=== PATIENT | female | born 1950 | race Caucasian/White ===

== ENCOUNTER 2018-12-20 23:18 | Emergency (ER) | payer OTHER ==
[~2018-12-20] VITALS: Ht 162.6 cm; Wt 72.6 kg
--- NOTE | 2018-12-20 23:40 | NUR ---
Patient bib ems from [facility] at [facility] for unwitnessed fall + AMS. A/Ox1 responds to name. Laceration noted on left forehead, no active bleeding. Multiple bruises noted on LLE. Respiratory even and unlabored, no cough no sob. No acute cardiovascular distress noted. No GI/ distress. Patient in bed at lowest position, sr upx2, call light within reach. Fall precautions implemented per protocol. Patient is unable to sit still and constantly gets out of bed. Patient at high risk for falls. Nursing vine fruit farming supervisor notified, and is trying to figure out sitter situation.
[2018-12-20] MEDS ORDERED: IV NS 1000 ML 1,000 ML IV ONE (23:45)
[2018-12-20] MEDS ORDERED: SERT50TA PO (23:49)
[2018-12-20] MEDS ORDERED: DIVA125T2 PO (23:49)
[2018-12-20] MEDS ORDERED: CHOL10002 PO (23:49)
[2018-12-20] MEDS ORDERED: RISP2TAB23 PO (23:49)
[2018-12-20] MEDS ORDERED: AMLO5TAB9 PO (23:49)
[2018-12-20] MEDS ORDERED: QUET25TA PO (23:49)
[2018-12-20] MEDS ORDERED: ASPI-605 PO (23:49)
[2018-12-20] MEDS ORDERED: ESZO3TAB27 PO (23:49)
[2018-12-20] MEDS ORDERED: AMLO10TA7 PO (23:49)
[2018-12-20] MEDS ORDERED: CYAN250010 PO (23:49)
[2018-12-20] MEDS ORDERED: ATOR20TA PO (23:49)
[2018-12-20] MEDS ORDERED: LORA1TAB PO (23:49)
[2018-12-20] MEDS ORDERED: ACET-2154 PO (23:49)
[2018-12-20] MEDS ORDERED: MULT1TAB73 PO (23:49)
--- NOTE | 2018-12-21 | NUR ---
Patient transferred to CT in stable condition.
[2018-12-21 00:12] LABS: BASOPHILS % (AUTO) 0.4 % (0.0-2.0); EOSINOPHILS % (AUTO) 0.3 % (0.0-7.0); HEMATOCRIT 28.2 % (31.2-41.9); HEMOGLOBIN 9.5 g/dL (10.9-14.3); LYMPHOCYTES # (AUTO) 1.5 K/uL (20.0-40.0); MEAN CORPUSCULAR HEMOGLOBIN 28.6 uug (24.7-32.8); MEAN CORPUSCULAR HGB CONC 34 g/dL (32.3-35.6); MEAN CORPUSCULAR VOLUME 84.5 fL (75.5-95.3); MONOCYTES # (AUTO) 1.4 K/uL (2.0-10.0); MONOCYTES % (AUTO) 11.7 % (0.0-11.0); NEUTROPHILS # (AUTO) 8.7 K/uL (1.8-8.9); NEUTROPHILS % (AUTO) 74.6 % (38.5-71.5); PLATELET COUNT (AUTO) 258 K/uL (179-408); RED BLOOD CELL COUNT(AUTO) 3.33 MIL/uL (3.63-4.92); WHITE BLOOD COUNT (AUTO) 11.6 K/uL (3.8-11.8)
--- NOTE | 2018-12-21 00:20 | NUR ---
Patient back in room from CT.
[2018-12-21 00:24] LABS: BILIRUBIN,DIRECT 0.2 mg/dL (0.0-0.2); BILIRUBIN,TOTAL 0.9 mg/dL (0.2-1.0); CREATININE 1.4 mg/dL (0.6-1.3); POTASSIUM 3.4 mmol/L (3.5-5.1); TOTAL PROTEIN, SERUM 6.5 g/dL (6.4-8.2)
--- NOTE | 2018-12-21 00:30 | NUR ---
Nursing call centre supervisor is sending CHEMICAL PRODUCTION TECHNICIAN from inpatient floor to sit for patient.
[2018-12-21 02:49] LABS: *BILIRUBIN,URIN NEGATIVE (NEGATIVE); *BLOOD, URINE 3+ (NEGATIVE); *CLARITY,URINE SLIGHTLY CLOUDY (CLEAR); *COLOR,URINE YELLOW (YELLOW); *KETONES,URINE 1+ (NEGATIVE); LEUKOCYTE ESTERASE ,URINE 2+ (NEGATIVE); NITRITE, URINE POSITIVE (NEGATIVE); UGLUCOSE NEGATIVE (NEGATIVE)
[2018-12-21 03:02] LABS: BACTERIA,URINE MANY /HPF (NONE SEEN); RBC,URINE 20-50 /HPF (0-3); WBC,URINE 80-100 /HPF (0-3)
[2018-12-21 03:03] LABS: SQUAMOUS EPITHELIAL CELL,UR FEW /HPF (NONE SEEN)
[2018-12-21] MEDS ORDERED: CEFTRIAXONE 1 G in IV DEXTROSE 5% 50 ML IV ONE (03:30)
[2018-12-21] MEDS ORDERED: CEFTRIAXONE 1 G VIAL ONE (03:52)
[2018-12-21] MEDS ORDERED: LORAZEPAM 2 MG/1 ML VIAL ONE (04:56)
[2018-12-21] MEDS ORDERED: LORAZEPAM 2 MG/1 ML VIAL IV ONE (05:00)
[2018-12-21 05:21] LABS: ETHANOL < 3 MG/DL (0-0)
--- NOTE | 2018-12-21 06:11 | NUR ---
Report givent to DONATO Chinchilla charge at [facility]
--- NOTE | 2018-12-21 06:29 | NUR ---
Patient in bed asleep, NAD, VSS
--- NOTE | 2018-12-21 06:57 | NUR ---
Transport is here for patient.
--- NOTE | 2018-12-21 06:58 | NUR ---
Patient Tranfers to outside Facility Physician:Dr. Encinas Location:[facility]
[2018-12-21 15:55] LABS: *AMPHETAMINE, URINE NEGATIVE (NEGATIVE); *CANNABINOID, URINE NEGATIVE (NEGATIVE); *COCCAINE, URINE NEGATIVE (NEGATIVE); *OPIATE, URINE NEGATIVE (NEGATIVE); *PHENCYCLIDINE SCREEN,URINE NEGATIVE (NEGATIVE)
[2018-12-21 15:56] LABS: *BARBITURATE, URINE NEGATIVE (NEGATIVE)
== END 2018-12-21 07:00 | disposition short-term general hospital (02) ==
LOC: ER 23:18
DX: S01.81XA Laceration without foreign body of other part of head, initial encounter (principal); T14.8XXA Other injury of unspecified body region, initial encounter; G93.40 Encephalopathy, unspecified; E78.5 Hyperlipidemia, unspecified; F41.9 Anxiety disorder, unspecified; F20.9 Schizophrenia, unspecified; Z79.82 Long term (current) use of aspirin; Z79.899 Other long term (current) drug therapy; W19.XXXA Unspecified fall, initial encounter; Y93.89 Activity, other specified; Y92.89 Other specified places as the place of occurrence of the external cause; Y99.8 Other external cause status
CPT/HCPCS: 36415 ×2; 70450; 71045; 72125; 80048; 80076; 80307; 81000; 81001; 84484; 85025; 85730; 87040 ×2; 87077; 87086 ×2; 87186 ×2; 93005; 96361; 96365; 96375; 99285; G0480; J0696; J2060; J7060; 70030-TC; A4663; J7030

== ENCOUNTER 2019-03-30 15:59 | Inpatient (IN) | payer MEDICARE, OTHER ==
[~2019-03-30] VITALS: Ht 162.6 cm; Wt 65.8 kg
[~2019-03-30 15:59] MED LIST: ACET-2154 PO; AMLO10TA7 PO; AMLO5TAB9 PO; ASPI-605 PO; ATOR20TA PO; CHOL10002 PO; CYAN250010 PO; DIVA125T2 PO; ESZO3TAB27 PO; LORA1TAB PO; MULT1TAB73 PO; QUET25TA PO; RISP2TAB23 PO; SERT50TA PO
--- NOTE | 2019-03-30 16:20 | NUR ---
pt bib [id number] from [facility] for medical clearance for psych admission. pt combative, aggressive inspite of comfort measures and trying to orient the pt. notified.
[2019-03-30] MEDS ORDERED: LORAZEPAM 2 MG/1 ML VIAL ONE (16:25)
[2019-03-30] MEDS ORDERED: HALOPERIDOL LACTATE 5 MG/1 ML VIAL ONE (16:25)
[2019-03-30] MEDS ORDERED: LORAZEPAM 2 MG/1 ML VIAL IM ONE (16:30)
[2019-03-30] MEDS ORDERED: HALOPERIDOL LACTATE 5 MG/1 ML VIAL IM ONE (16:30)
--- NOTE | 2019-03-30 17:00 | NUR ---
pt resting, arousable.
--- NOTE | 2019-03-30 17:17 | NUR ---
pt transfered to room in stable condition.
[2019-03-30] MEDS ORDERED: LORAZEPAM 0.5 MG TABLET PO PRN (17:45)
[2019-03-30] MEDS ORDERED: MAGNESIUM HYDROXIDE 30 ML LIQUID UDC PO PRN (17:45)
[2019-03-30] MEDS ORDERED: BLOOD SUGAR DIAGNOSTIC 1 EACH STRIP VI ONE (17:45)
[2019-03-30] MEDS ORDERED: MAG HYDROX/AL HYDROX/SIMETH 30 ML LIQUID UDC PO PRN (17:45)
[2019-03-30 18:27] VITALS: BP 118/61
--- NOTE | 2019-03-30 18:55 | NUR ---
Per 5150 DTS and GD due to continue to be hostile and unable to provide a plan of care outside the facility. Often states she needs scissors and when asked for what pt.states "Not of your business." Patient at this stage appears to be a harm to self because she does not appear to be able to care for self.patient is A/O x1 to self only received IM from ER un able to interview pt.
--- NOTE | 2019-03-31 07:01 | NUR ---
PATIENT SLEPT FOR APPROX 10 HRS THROUGH THE NIGHT. HER URINE WAS SENT FOR URINALYSIS AND C/S UA. WILL ENDORSE TO INCOMING SHIFT FOR F/U
[2019-03-31 07:28] LABS: *BILIRUBIN,URIN NEGATIVE (NEGATIVE); *BLOOD, URINE 2+ (NEGATIVE); *CLARITY,URINE TURBID (CLEAR); *COLOR,URINE DARK YELLOW (YELLOW); *KETONES,URINE TRACE (NEGATIVE); *UROBILINOGEN,URINE 0.2 E.U./dl (NORMAL); LEUKOCYTE ESTERASE ,URINE 2+ (NEGATIVE); NITRITE, URINE POSITIVE (NEGATIVE); PH,URINE 5.5 (5.0-8.0); UGLUCOSE NEGATIVE (NEGATIVE)
[2019-03-31 07:30] VITALS: BP 116/71
[2019-03-31 07:34] LABS: BACTERIA,URINE MANY /HPF (NONE SEEN); SQUAMOUS EPITHELIAL CELL,UR FEW /HPF (NONE SEEN); WBC,URINE 20-50 /HPF (0-3)
[2019-03-31] MEDS: ACETAMINOPHEN 325 MG TABLET PO PRN (08:25)
[2019-03-31] MEDS ORDERED: OLANZAPINE 10 MG VIAL IM ONE (08:45)
[2019-03-31] MEDS ORDERED: LORAZEPAM 0.5 MG TABLET PO PRN (09:00)
--- NOTE | 2019-03-31 09:30 | NUR ---
Pt received, wondering into other Pt's rooms, redirected to correct room. Pt appeared restless and expressed anxiety, PRN Ativan 0.5mg PO administered per PRN orders. Pt persisted and encouraged to sit in librado-chair with supervision for breakfast. Pt threw breakfast tray and all items at the floor, yelling at staff aggressively. Pt seen by . New order received for Zyprexa 10mg IM, to be given once, now. Medication administered. All comfort and safety measures implemented. Pt oriented only to self. Will continue to monitor for safety.
[2019-03-31] MEDS: DIVALPROEX SPRINKLE 125 MG CAP.SPRINK PO SCH ×2 (09:55→21:35)
[2019-03-31] MEDS: QUETIAPINE FUMARATE 25 MG TABLET PO SCH ×3 (12:58→21:35)
[2019-03-31 15:33] VITALS: BP 134/56
--- NOTE | 2019-03-31 16:59 | NUR ---
Initial Discharge Plan: Patient is currently residing at [facility] [[address] [place] [address]; ]. Per fredin sister April [[phone]] patient will not be welcomed back at facility. Boat Cleaner may assist family in securing alternate placement. Boat Cleaner will continue to meet with pt, and collaborating with patient, conservator, family, and MD on a safe and proper discharge plan.
[2019-03-31 20:19] VITALS: BP 131/71
[2019-04-01] MEDS: CEphaleXIN 500 MG CAPSULE PO SCH ×5 (00:34→22:00)
[2019-04-01] MEDS ORDERED: Z GUARD REMEDY PASTE 57 GM TUBE TOP PRN (02:00)
[2019-04-01] MEDS ORDERED: CEphaleXIN 500 MG CAPSULE PO SCH (06:00)
[2019-04-01 07:30] VITALS: BP 150/71
[2019-04-01 07:34] LABS: BASOPHILS # (AUTO) 0.1 K/uL (0.0-8.0); BASOPHILS % (AUTO) 1.1 % (0.0-2.0); EOSINOPHILS # (AUTO) 0.1 K/uL (0.0-0.7); EOSINOPHILS % (AUTO) 1.4 % (0.0-7.0); HEMATOCRIT 34.2 % (31.2-41.9); HEMOGLOBIN 11.4 g/dL (10.9-14.3); LYMPHOCYTES # (AUTO) 1.5 K/uL (20.0-40.0); LYMPHOCYTES % (AUTO) 26.4 % (20.5-51.5); MEAN CORPUSCULAR HEMOGLOBIN 27.1 uug (24.7-32.8); MEAN CORPUSCULAR HGB CONC 34 g/dL (32.3-35.6); MEAN CORPUSCULAR VOLUME 80.9 fL (75.5-95.3); MONOCYTES # (AUTO) 0.6 K/uL (2.0-10.0); MONOCYTES % (AUTO) 9.8 % (0.0-11.0); NEUTROPHILS # (AUTO) 3.6 K/uL (1.8-8.9); NEUTROPHILS % (AUTO) 61.3 % (38.5-71.5); PLATELET COUNT (AUTO) 194 K/uL (179-408); RED BLOOD CELL COUNT(AUTO) 4.22 MIL/uL (3.63-4.92); WHITE BLOOD COUNT (AUTO) 5.8 K/uL (3.8-11.8)
[2019-04-01 07:54] LABS: BILIRUBIN,TOTAL 0.7 mg/dL (0.2-1.0); CREATININE 0.7 mg/dL (0.6-1.3); MAGNESIUM 2.2 mg/dL (1.8-2.4); PHOSPHOROUS 3.9 mg/dL (2.5-4.9); POTASSIUM 3.9 mmol/L (3.5-5.1); TOTAL PROTEIN, SERUM 7.1 g/dL (6.4-8.2)
[2019-04-01 07:57] LABS: THYROID STIMULATING HORMONE 1.146 mIU/mL (0.358-3.740)
[2019-04-01] MEDS: QUETIAPINE FUMARATE 25 MG TABLET PO SCH ×5 (08:05→21:12)
[2019-04-01] MEDS: DIVALPROEX SPRINKLE 125 MG CAP.SPRINK PO SCH ×3 (08:05→21:11)
[2019-04-01] MEDS: LORAZEPAM 1 MG TABLET PO PRN (08:05)
--- NOTE | 2019-04-01 17:22 | NUR ---
GPS: patient AOX1, denies SI and Hi, patient needs redirection, seen wandering in other patients room, patient able to redirect, took afternoon nap , compliant with medication, will continue monitor
[2019-04-01 20:02] VITALS: BP 129/51
[2019-04-01] MEDS: ATORVASTATIN 10 MG TABLET PO SCH ×2 (21:00→21:11)
[2019-04-02] MEDS: CEphaleXIN 500 MG CAPSULE PO SCH ×4 (06:00→20:52)
--- NOTE | 2019-04-02 06:00 | NUR ---
Patient slept well total of 7.30 hours. No complaints made. Attended all needs. Ensured safety and comfort. No other untoward events noted.
--- NOTE | 2019-04-02 07:30 | NUR ---
RECIEVED PT WALKING IN THE HALLWAY. AWAKE,ALER AND ORIENTED TO HER NAME ONLY. PT IS FORGETFUL AND CONFUSED. FOCUS IS VERY SHORT. AMBULATING SLOW BUT STEADY. NO APPARENT DISTRESS NOTED.
[2019-04-02 08:10] VITALS: BP 114/68
[2019-04-02] MEDS: DIVALPROEX SPRINKLE 125 MG CAP.SPRINK PO SCH ×2 (08:49→20:51)
[2019-04-02] MEDS: QUETIAPINE FUMARATE 25 MG TABLET PO SCH ×4 (08:49→20:51)
[2019-04-02] MEDS: LORAZEPAM 1 MG TABLET PO PRN ×3 (08:49→23:52)
[2019-04-02] MEDS: AMLODIPINE 10 MG TABLET PO SCH (08:50)
--- NOTE | 2019-04-02 12:00 | NUR ---
PT IS EATING GOOD. WONDERS AROUND BELLIGENRENTLY. PLACED PT ON GEROCHAIR FOR SAFETY.
[2019-04-02] MEDS ORDERED: OLANZAPINE 10 MG VIAL IM ONE (13:15)
--- NOTE | 2019-04-02 13:18 | NUR ---
PT IS INCREASINGLY BECOMING VERY AGITATED AND SCREAMING SO LOUDLY. MEDICATED WITH ZYPREXA 10MG IM LEFT DELTOID PER MD'S ORDER. PT STILL VERY RESTLESS AND NOT ABLE TO FOLLOW. SPEECH IS CLEAR BUT SLOW.
--- NOTE | 2019-04-02 13:20 | NUR ---
Patient started wondering around the unit, forgets where her room is, takes other patients' belongings. pt is non-sensical, A/O x 1. Pt was disrobing in the hallway. When redirected, pt became agitated. Pt was assisted to a librado-chair, diversional activities (reading, drawing) offered. Pt became agitated, threw the matterials on the floor and began banging on the table. Dr. Taylor was contacted. Order for Zyprexa 10mg IM was given.
[2019-04-02 16:29] VITALS: BP 134/68
--- NOTE | 2019-04-02 17:00 | NUR ---
ATIVAN 1MG ORALLY GIVEN TO PT FOR ANXIETY AND AGITATION. PT STILL SITTING ON A GEROCHAIR.
[2019-04-02] MEDS: ATORVASTATIN 10 MG TABLET PO SCH (20:51)
[2019-04-02 21:01] VITALS: BP 130/60
--- NOTE | 2019-04-02 22:00 | NUR ---
received to care, up in librado chair, talking to self, banging on table, appearing distracted by internal stimuli. compliant with medications and staff direction. as of 2199, she remains awake. assisted with diaper change, and PM care, was assisted to bed, but refused to stay. gait remains unsteady. placed back in librado chair, for safety. will continue to monitor closely.
[2019-04-02] MEDS: TEMAZEPAM 7.5 MG CAPSULE PO PRN (22:50)
[2019-04-02] MEDS: ACETAMINOPHEN 325 MG TABLET PO PRN (22:50)
--- NOTE | 2019-04-02 22:50 | NUR ---
remains agitated. continues to yell. difficult to redirect. PRN restoril was given for insomnia.
--- NOTE | 2019-04-02 23:52 | NUR ---
remains agitated, yelling and cursing. PRN ativan was given.
--- NOTE | 2019-04-03 00:30 | NUR ---
continues to yell. does not respond to redirection. placed in area near nurses station, with decreased stimulation.
--- NOTE | 2019-04-03 01:25 | NUR ---
no change since last entry. will continue to monitor closely, for safety.
[2019-04-03] MEDS: CEphaleXIN 500 MG CAPSULE PO SCH ×3 (06:10→22:50)
[2019-04-03] MEDS: LORAZEPAM 1 MG TABLET PO PRN ×2 (06:10→15:43)
--- NOTE | 2019-04-03 06:10 | NUR ---
slept 1 hour, total. assisted with AM care, and shower. remains agitated, yelling, difficult to redirect. PRN ativan was given. remains up in librado chair, for safety.
[2019-04-03 07:30] VITALS: BP 92/69
[2019-04-03] MEDS: DIVALPROEX SPRINKLE 125 MG CAP.SPRINK PO SCH ×2 (08:18→22:50)
[2019-04-03] MEDS: AMLODIPINE 10 MG TABLET PO SCH (08:18)
[2019-04-03] MEDS: QUETIAPINE FUMARATE 25 MG TABLET PO SCH ×4 (08:18→22:52)
--- NOTE | 2019-04-03 11:40 | NUR ---
Social Work Note: Licensed Investment Sales Assistant spoke with patient's probate conservator - Penny Diehl, Office of Public Guardian [[phone]]. Per Penny, patient won't be accepted back at [facility] and a locked facility may be more appropriate for this patient. Licensed Investment Sales Assistant to follow up with referral to locked facilities.
[2019-04-03 20:43] VITALS: BP 155/39
[2019-04-03] MEDS: ATORVASTATIN 10 MG TABLET PO SCH (22:51)
[2019-04-04] MEDS: CEphaleXIN 500 MG CAPSULE PO SCH ×3 (06:57→21:08)
[2019-04-04 07:30] VITALS: BP 142/61
--- NOTE | 2019-04-04 08:30 | NUR ---
PT IS STILL VERY SLEEPY IN BED. REFUSED TO EAT HER BREAKFAST. PT ALSO UNABLE TO TAKE HER MORNING MEDICATIONS.
[2019-04-04] MEDS: QUETIAPINE FUMARATE 25 MG TABLET PO SCH ×4 (12:20→20:40)
[2019-04-04] MEDS: AMLODIPINE 10 MG TABLET PO SCH (12:21)
[2019-04-04] MEDS: DIVALPROEX SPRINKLE 125 MG CAP.SPRINK PO SCH ×2 (12:21→20:40)
[2019-04-04 15:40] VITALS: BP 100/60
--- NOTE | 2019-04-04 16:00 | NUR ---
pt is awake, and started to wonder around the atkins. unable to follow instructions. Pt is screaming and very uncontrolled. Placed the pt on a gerichair and started banging the table. very agitated and behavior is starting to be combative.
[2019-04-04] MEDS ORDERED: LORAZEPAM 2 MG/1 ML VIAL IM ONE (16:45)
[2019-04-04] MEDS ORDERED: HALOPERIDOL LACTATE 5 MG/1 ML VIAL IM ONE (16:45)
[2019-04-04] MEDS ORDERED: BENZTROPINE MESYLATE 2 MG/2 ML AMPUL IM ONE (16:45)
[2019-04-04] MEDS: LORAZEPAM 1 MG TABLET PO PRN (16:45)
--- NOTE | 2019-04-04 16:50 | NUR ---
Notified Dr Chavira about pt's condition with new orders.
--- NOTE | 2019-04-04 16:52 | NUR ---
medicated pt with Ativan 1mg given IM on the right deltoid area. Haldol 5mg IM left deltoid, Cogentin 1mg IM right deltoid as ordered with security and brick catcher.
--- NOTE | 2019-04-04 17:53 | NUR ---
Pt is still confused and still screaming but appears to be groggy. Ate very little, pt is uncooperative.
[2019-04-04 20:00] VITALS: BP 105/62
--- NOTE | 2019-04-04 20:00 | NUR ---
RECEIVED PATIENT IN HER ROOM IN BED. SHE IS NOTED RESTLESS. SHE CONTINUE A/O X1, CONFUSED, DISORGANIZED THOUGHT, POOR HISTORIAN, FLAT AFFECT; HOWEVER, NO AGGRESSIVE/COMBATIVE BX NOTED AT THIS TIME. V/S STABLE. SAFETY AND FALL PRECAUTION IN PLACE. WILL CONTINUE TO MONITOR.
[2019-04-04] MEDS: ATORVASTATIN 10 MG TABLET PO SCH (20:40)
[2019-04-05] MEDS: CEphaleXIN 500 MG CAPSULE PO SCH ×2 (06:09→13:10)
[2019-04-05] MEDS: LORAZEPAM 1 MG TABLET PO PRN ×2 (06:48→16:01)
[2019-04-05] MEDS: DIVALPROEX SPRINKLE 125 MG CAP.SPRINK PO SCH ×3 (08:22→16:01)
[2019-04-05] MEDS: QUETIAPINE FUMARATE 25 MG TABLET PO SCH ×2 (08:22→12:26)
[2019-04-05] MEDS: AMLODIPINE 10 MG TABLET PO SCH (08:23)
--- NOTE | 2019-04-05 09:20 | NUR ---
GPS Nursing Note: Severe agitation: Pt. is restless, disorganized, confused, combative, banging on table multiple times, trying to scratch staff and resistance to nursing care. Attempted to reorient and reduced environmental stimuli. Pt. remain restless, unable to follow directions with poor impulse after non-pharmacological intervention. Promptly notified Dr. Chavira of pt's behavior. Received new order for Ativan 1mg IM once, Cogentin 1mg IM once, and Haldol 5mg IM once. Orders carried out accordingly. Continue to monitor for safety.
[2019-04-05] MEDS ORDERED: LORAZEPAM 2 MG/1 ML VIAL IM ONE (09:30)
[2019-04-05] MEDS ORDERED: HALOPERIDOL LACTATE 5 MG/1 ML VIAL IM ONE (09:30)
[2019-04-05] MEDS ORDERED: BENZTROPINE MESYLATE 2 MG/2 ML AMPUL IM ONE (09:30)
--- NOTE | 2019-04-05 09:35 | NUR ---
GPS: Nursing Notes: Chemical restraint: Pt. continue to be severely agitated, poor anger management and poor impulse control. Administered Ativan, Cogentin, and Haldol as ordered. Will continue to monitor for safety and ASE. Continue with treatment plan.
--- NOTE | 2019-04-05 10:30 | NUR ---
GPS: Nursing Notes: Reassessment of chemical restraint: Pt. calm, less banging on table and less aggressive towards staff. IM medications effective, no ASE. Pt. alert and responsive to verbal and tactile stimuli. No s/sx of respiratory depression. Observed closely for safety. Will continue to monitor accordingly.
[2019-04-05] MEDS: risperiDONE-M 0.5 MG TAB.RAPDIS PO SCH ×2 (13:13→16:01)
[2019-04-05 13:31] LABS: BASOPHILS # (AUTO) 0.1 K/uL (0.0-8.0); BASOPHILS % (AUTO) 1.1 % (0.0-2.0); EOSINOPHILS % (AUTO) 0.4 % (0.0-7.0); HEMATOCRIT 39.1 % (31.2-41.9); HEMOGLOBIN 12.8 g/dL (10.9-14.3); LYMPHOCYTES # (AUTO) 1.9 K/uL (20.0-40.0); LYMPHOCYTES % (AUTO) 19.6 % (20.5-51.5); MEAN CORPUSCULAR HGB CONC 33 g/dL (32.3-35.6); MEAN CORPUSCULAR VOLUME 82.7 fL (75.5-95.3); MONOCYTES # (AUTO) 0.8 K/uL (2.0-10.0); MONOCYTES % (AUTO) 8.7 % (0.0-11.0); NEUTROPHILS # (AUTO) 6.8 K/uL (1.8-8.9); NEUTROPHILS % (AUTO) 70.2 % (38.5-71.5); PLATELET COUNT (AUTO) 231 K/uL (179-408); RED BLOOD CELL COUNT(AUTO) 4.73 MIL/uL (3.63-4.92); WHITE BLOOD COUNT (AUTO) 9.7 K/uL (3.8-11.8)
[2019-04-05 13:38] LABS: BILIRUBIN,TOTAL 0.5 mg/dL (0.2-1.0); CREATININE 0.8 mg/dL (0.6-1.3); MAGNESIUM 2.4 mg/dL (1.8-2.4); POTASSIUM 4.1 mmol/L (3.5-5.1)
[2019-04-05 15:11] VITALS: BP 148/66
--- NOTE | 2019-04-05 18:56 | NUR ---
Pt. compliant with medications regimen. Showered today and tolerated well. PRN PO Ativan given at 1600 for anxiety m/b fidgeting and intermittently banging on her table. Safety measures and fall precaution in place. Will endorse to oncoming shift accordingly.
[2019-04-05] MEDS: ATORVASTATIN 10 MG TABLET PO SCH (20:01)
[2019-04-05 20:21] VITALS: BP 131/69
[2019-04-05] MEDS: TEMAZEPAM 7.5 MG CAPSULE PO PRN (21:01)
[2019-04-06 07:30] VITALS: BP 141/47
[2019-04-06] MEDS: AMLODIPINE 10 MG TABLET PO SCH (09:12)
[2019-04-06] MEDS: risperiDONE-M 0.5 MG TAB.RAPDIS PO SCH ×3 (09:12→16:42)
[2019-04-06] MEDS: DIVALPROEX SPRINKLE 125 MG CAP.SPRINK PO SCH ×3 (09:12→16:42)
[2019-04-06] MEDS: LORAZEPAM 1 MG TABLET PO PRN ×2 (09:49→22:53)
[2019-04-06] MEDS ORDERED: LORAZEPAM 2 MG/1 ML VIAL IM ONE (10:45)
[2019-04-06] MEDS ORDERED: HALOPERIDOL LACTATE 5 MG/1 ML VIAL IM ONE (10:45)
[2019-04-06] MEDS ORDERED: BENZTROPINE MESYLATE 2 MG/2 ML AMPUL IM ONE (10:45)
--- NOTE | 2019-04-06 10:46 | NUR ---
GPS: Nursing Notes: Chemical Restraint: patient is awake and responding to her name, poor anger management, restless behavior, overly disruptive by shouting and banging on the table hard and constant, impaired judgement, redirected, but continue to be restless, trying to stand on the librado chair without any regard for her safety, loud and angry affect, resistant with nursing care, internally preoccupied, Dr. Taylor called back and ordered: Haldol 5mg IM, Ativan 1mg IM and Cogentin 1mg IM x1 STAT for severe agitated behavior, R=18, continue to monitor for safety, continue with treatment plan.
--- NOTE | 2019-04-06 11:16 | NUR ---
GPS: Nursing Notes: Reassessment of Chemical Restraint: Patient became calmed, cooperative with staff, disoriented, confused, disorganized, but compliant with her medications, following staff directions, continue to monitor for safety, R=18, meication IM's were effective, continue with treatment plan.
[2019-04-06 16:26] VITALS: BP 138/63
[2019-04-06 20:37] VITALS: BP 114/42
[2019-04-06] MEDS: ATORVASTATIN 10 MG TABLET PO SCH (21:15)
[2019-04-06] MEDS: TEMAZEPAM 7.5 MG CAPSULE PO PRN (21:16)
--- NOTE | 2019-04-06 22:56 | NUR ---
PT CONTINUE TALKING TO HERSELF, RESTLESS, AND ANXIOUS. ATIVAN 1MG PO PRN WAS GIVEN FOR ANXIETY. WILL CONTINUE TO MONITOR.
[2019-04-07 07:30] VITALS: BP 134/91
[2019-04-07] MEDS: AMLODIPINE 10 MG TABLET PO SCH (08:16)
[2019-04-07] MEDS: risperiDONE-M 0.5 MG TAB.RAPDIS PO SCH ×3 (08:16→16:27)
[2019-04-07] MEDS: DIVALPROEX SPRINKLE 125 MG CAP.SPRINK PO SCH ×3 (08:16→16:27)
[2019-04-07] MEDS: LORAZEPAM 1 MG TABLET PO PRN (08:25)
--- NOTE | 2019-04-07 08:49 | NUR ---
FIREARMS REPORT: Biomedical Equipment Tech completed and submitted a [employer] firearms report for 5150 DTS certification. A copy of report has been placed in patient chart.
--- NOTE | 2019-04-07 15:02 | NUR ---
Discharge Planning: furnace worker faxed patient referral packet to [facility] [[address] [place] [address]; ], awaiting acceptance. Night Monitor also spoke with patient's conservator Loretta Diehl [[phone]] who approved to send referral packet to [facility].
[2019-04-07 15:38] VITALS: BP 119/52
--- NOTE | 2019-04-07 18:24 | NUR ---
GPS: PATIENT AOX1 , PATIENT AGITATED AND YELLING AT THE START OF THE SHIFT PRN MEDICATION GIVEN, PATIENT BEEN CALM AND COOPERATIVE THE WHOLE SHIFT, TOOK SHOWER AND BEEN EATING AND DRINKING
[2019-04-07 20:00] VITALS: BP 109/50
[2019-04-07] MEDS: ATORVASTATIN 10 MG TABLET PO SCH (20:56)
--- NOTE | 2019-04-07 22:00 | NUR ---
received to care, up in librado chair, asleep. easy to arouse, but doesn't open her eyes, and falls right back to sleep. bedtime medications were held, and she was assisted to bed. as of 2199, she remains asleep. no distress noted. will continue to monitor closely.
--- NOTE | 2019-04-08 06:00 | NUR ---
slept 9 hours. continues to sleep. no distress noted.
[2019-04-08 07:57] LABS: CREATININE 0.8 mg/dL (0.6-1.3); POTASSIUM 4.1 mmol/L (3.5-5.1)
[2019-04-08 08:00] VITALS: BP 117/52
[2019-04-08] MEDS: AMLODIPINE 10 MG TABLET PO SCH (09:00)
[2019-04-08] MEDS: risperiDONE-M 0.5 MG TAB.RAPDIS PO SCH ×2 (09:00→17:00)
[2019-04-08] MEDS: DIVALPROEX SPRINKLE 125 MG CAP.SPRINK PO SCH ×3 (09:00→17:00)
[2019-04-08 16:50] VITALS: BP 127/59
[2019-04-08] MEDS ORDERED: IV NS 1000 ML 1,000 ML IV ONE (17:45)
--- NOTE | 2019-04-08 18:33 | NUR ---
seen and examined by RESEARCH TECHNOLOGIST Ladi Dolan, orders to start IV bolus , heplock started on Left hand, with a good visible backflow patient tolerated the procedure, started IV fluid as ordered , patient on close monitor
[2019-04-08 20:33] VITALS: BP 150/63
[2019-04-08] MEDS: ATORVASTATIN 10 MG TABLET PO SCH (21:00)
[2019-04-08] MEDS ORDERED: risperiDONE 2 MG TABLET PO SCH (21:00)
--- NOTE | 2019-04-08 22:30 | NUR ---
received to care, up in librado chair, appearing sedated, but arousable. all medications were held. IV bolus was completed. assisted to bed. PM care given. as of 2229, she appears to be asleep, in bed. no distress noted. will continue to monitor closely.
--- NOTE | 2019-04-09 06:00 | NUR ---
slept 7.5 hours. continues to sleep. no distress noted.
[2019-04-09 07:30] VITALS: BP 160/62
[2019-04-09 07:44] LABS: BASOPHILS # (AUTO) 0.1 K/uL (0.0-8.0); BASOPHILS % (AUTO) 0.8 % (0.0-2.0); EOSINOPHILS # (AUTO) 0.1 K/uL (0.0-0.7); EOSINOPHILS % (AUTO) 0.9 % (0.0-7.0); HEMATOCRIT 34.1 % (31.2-41.9); HEMOGLOBIN 11.2 g/dL (10.9-14.3); LYMPHOCYTES # (AUTO) 1.3 K/uL (20.0-40.0); MEAN CORPUSCULAR HEMOGLOBIN 27.2 uug (24.7-32.8); MEAN CORPUSCULAR HGB CONC 33 g/dL (32.3-35.6); MEAN CORPUSCULAR VOLUME 82.7 fL (75.5-95.3); MONOCYTES # (AUTO) 0.7 K/uL (2.0-10.0); MONOCYTES % (AUTO) 9.1 % (0.0-11.0); NEUTROPHILS # (AUTO) 5.3 K/uL (1.8-8.9); NEUTROPHILS % (AUTO) 71.2 % (38.5-71.5); PLATELET COUNT (AUTO) 204 K/uL (179-408); RED BLOOD CELL COUNT(AUTO) 4.13 MIL/uL (3.63-4.92); WHITE BLOOD COUNT (AUTO) 7.4 K/uL (3.8-11.8)
[2019-04-09 07:51] LABS: CREATININE 0.7 mg/dL (0.6-1.3)
[2019-04-09] MEDS: risperiDONE-M 0.5 MG TAB.RAPDIS PO SCH ×2 (09:45→17:00)
[2019-04-09] MEDS: DIVALPROEX SPRINKLE 125 MG CAP.SPRINK PO SCH ×3 (09:45→17:00)
[2019-04-09] MEDS: AMLODIPINE 10 MG TABLET PO SCH (09:45)
[2019-04-09 16:00] VITALS: BP 157/60
--- NOTE | 2019-04-09 16:25 | NUR ---
Pt received this morning, appearing sedated but able to be aroused. Pt assisted to Gaye-chair, for breakfast, swallow evaluation successful. Pt able to wake up enough to consume some breakfast, including 2 ensures, a banana, and oatmeal together, along with routine medications crushed, assisted with feeding. Pt seen by MD, plan of care discussed. Including possible D/C to med/surg for further evaluation. Pt VS stable. Will continue to monitor and follow up as needed.
[2019-04-09] MEDS ORDERED: risperiDONE 2 MG TABLET PO SCH (21:00)
[2019-04-09] MEDS ORDERED: risperiDONE 1 MG TABLET PO SCH (21:00)
[2019-04-11] MEDS ORDERED: HALO2ORA PO (10:14)
[2019-04-11] MEDS ORDERED: LORA-259 PO (10:14)
[2019-04-11] MEDS ORDERED: BENZ1TAB7 PO (10:14)
[2019-04-11] MEDS ORDERED: CLON0.1T14 PO (10:14)
== END 2019-04-09 20:36 | disposition short-term general hospital (02) | DRG 885 ==
LOC: ER 15:59 → GPS 17:10
PROVIDERS: ADMIT Psychiatry & Neurology Psychiatry; ATTEND Internal Medicine
DX: F29 Unspecified psychosis not due to a substance or known physiological condition (principal); N39.0 Urinary tract infection, site not specified; F03.91 Unspecified dementia, unspecified severity, with behavioral disturbance; E78.5 Hyperlipidemia, unspecified; B96.20 Unspecified Escherichia coli [E. coli] as the cause of diseases classified elsewhere; E86.0 Dehydration; Z79.899 Other long term (current) drug therapy; Z87.891 Personal history of nicotine dependence; I10 Essential (primary) hypertension; R79.89 Other specified abnormal findings of blood chemistry
CPT/HCPCS: 36415; 71045; 80164; 83735; 84100; 84443; 85025; 87077; 87086; 93005; A4663; J0515; J1630; J2060; J2358; J7030

== ENCOUNTER 2019-04-09 20:33 | Inpatient (IN) | payer MEDICARE, MEDICAID ==
[~2019-04-09] VITALS: Ht 160 cm; Wt 66.7 kg
[2019-04-09 20:00] VITALS: BP 154/60
[~2019-04-09 20:33] MED LIST changes: -ACET-2154 PO; -AMLO5TAB9 PO; -ASPI-605 PO; -CHOL10002 PO; -CYAN250010 PO; -DIVA125T2 PO; -ESZO3TAB27 PO; -LORA1TAB PO; -MULT1TAB73 PO; -RISP2TAB23 PO
[2019-04-09] MEDS ORDERED: Z GUARD REMEDY PASTE 57 GM TUBE TOP PRN (20:45)
[2019-04-09] MEDS ORDERED: MAGNESIUM HYDROXIDE 30 ML LIQUID UDC PO PRN (20:45)
[2019-04-09] MEDS ORDERED: ONDANSETRON 4 MG/2 ML VIAL IV PRN (20:45)
[2019-04-09] MEDS ORDERED: IV NS 1000 ML 1,000 ML IV SCH (20:45)
[2019-04-09] MEDS ORDERED: HYDROCODONE/APAP 5-325MG TABLET PO PRN (20:45)
[2019-04-09] MEDS ORDERED: ACETAMINOPHEN 325 MG TABLET PO PRN (20:45)
--- NOTE | 2019-04-09 20:45 | NUR ---
Pt transferred to med/surg via w/c accompanied by staff for failure to thrive and acute renal failure. Attempted to notify Pt's sister April at [phone] Pt transfer and condition, phone has busy signal.
--- NOTE | 2019-04-09 20:45 | NUR ---
Received patient from U, Dx: [facility]. Patient has a 1:1 sitter for safety. Patient is A/Ox1. Easy to arouse, but lethargic. Falls back asleep right away. IVF and antibiotics to be started, heplock on the left wrist is intact and patent. Skin assessment done, no open wounds. Safety measures initiated. Bed is low and locked. Will continue with admission process.
[2019-04-09] MEDS ORDERED: risperiDONE 1 MG TABLET PO SCH (21:00)
[2019-04-09] MEDS ORDERED: CEFTRIAXONE 1 G VIAL ONE (21:49)
[2019-04-09] MEDS: CEFTRIAXONE 1 G in IV DEXTROSE 5% 50 ML IV SCH (21:52)
--- NOTE | 2019-04-09 22:12 | NUR ---
Did not administer night medication due to patient being too lethargic and just wanted to keep going back to sleep. Will continue to monitor.
[2019-04-10] VITALS (7 sets, daily range): BP systolic 106–170; BP diastolic 46–79
[2019-04-10] MEDS: LORAZEPAM 1 MG TABLET PO PRN (00:08)
[2019-04-10] MEDS ORDERED: HALOPERIDOL LACTATE 5 MG/1 ML VIAL IM ONE (02:45)
--- NOTE | 2019-04-10 02:55 | NUR ---
Patient has been agitated and anxious. PRN Ativan was given, but was not effective. Became more aggressive and pulled out IV. Contacted on-call Aleta NICHOLS and received orders for Haldol 2.5mg IM x1. Will continue to monitor.
--- NOTE | 2019-04-10 08:00 | NUR ---
RECEIVED PT IN CHAIR. NO SOB NOTED. NO ACUTE DISTRESS NOTED. PT HAS A 1:1 SITTER FOR SAFETY. BED LOCKED AND IN LOW POSITION. CALL LIGHT WITHIN REACH. SAFETY MEASURES IMPLEMENTED. WILL CONTINUE TO EVALUATE. WILL CONTINUE TO MONITOR.
[2019-04-10] MEDS ORDERED: BENZTROPINE MESYLATE 1 MG TABLET PO PRN (09:45)
[2019-04-10 10:09] LABS: CREATININE 0.6 mg/dL (0.6-1.3); MAGNESIUM 2.1 mg/dL (1.8-2.4); PHOSPHOROUS 3.7 mg/dL (2.5-4.9); POTASSIUM 4.4 mmol/L (3.5-5.1)
[2019-04-10 10:36] LABS: BASOPHILS % (AUTO) 0.2 % (0.0-2.0); EOSINOPHILS % (AUTO) 0.2 % (0.0-7.0); LYMPHOCYTES # (AUTO) 1.6 K/uL (20.0-40.0); MEAN CORPUSCULAR HEMOGLOBIN 26.7 uug (24.7-32.8)
[2019-04-10] MEDS: HALOPERIDOL LACTATE 10 MG/5 ML ORAL SOLUTION UDC PO SCH ×4 (10:37→20:45)
[2019-04-10 10:47] LABS: HEMATOCRIT 36.3 % (31.2-41.9); HEMOGLOBIN 11.5 g/dL (10.9-14.3); LYMPHOCYTES % (AUTO) 14.8 % (20.5-51.5); MEAN CORPUSCULAR HGB CONC 32 g/dL (32.3-35.6); MEAN CORPUSCULAR VOLUME 84.1 fL (75.5-95.3); MONOCYTES # (AUTO) 0.7 K/uL (2.0-10.0); MONOCYTES % (AUTO) 6.8 % (0.0-11.0); NEUTROPHILS # (AUTO) 8.5 K/uL (1.8-8.9); PLATELET COUNT (AUTO) 222 K/uL (179-408); RED BLOOD CELL COUNT(AUTO) 4.31 MIL/uL (3.63-4.92); WHITE BLOOD COUNT (AUTO) 10.9 K/uL (3.8-11.8)
[2019-04-10] MEDS: IV NS 1000 ML 1,000 ML IV PRN (13:06)
--- NOTE | 2019-04-10 20:00 | NUR ---
RECEIVED PATIENT AWAKE, SITTING IN LONI-CHAIR AT BEDSIDE. 1:1 SITTER PRESENT AT BEDSIDE. PATIENT IS ALERT TO SELF ONLY. CONFUSED AND DISORIENTED BUT PLEASANT WHEN APPROACHED. IVF INFUSING WELL TO RIGHT HAND #20 GAUGE. NO S/S OF PAIN OR DISCOMFORT. NO FACIAL GRIMACE NOTED. ALL NEEDS ATTENDED. WILL CONTINUE TO MONITOR AND ASSESS.
--- NOTE | 2019-04-10 20:05 | NUR ---
PT IS RESTING IN ROOM COMFORTABLY. PT HAS A 1:1 SITTER. IV CHANGED PT PULLED IV. IV INTACT. NO ACUTE DISTRESS NOTED. NO SOB NOTED. SAFETY MEASURES IMPLEMENTED. BED LOW AND IN LOCKED POSITION. WILL GIVE REPORT ACCORDINGLY
[2019-04-10] MEDS: CEFTRIAXONE 1 G in IV DEXTROSE 5% 50 ML IV SCH (20:43)
--- NOTE | 2019-04-10 21:00 | NUR ---
NOTIFIED SIMONE DUMONT OF PATIENTS BLOOD PRESSURE. RECEIVED NEW ORDERS. WILL CONTINUE TO MONITOR AND ASSESS.
[2019-04-10] MEDS ORDERED: CLONIDINE HCL 0.1 MG TABLET PO PRN (21:15)
[2019-04-11] MEDS: IV NS 1000 ML 1,000 ML IV PRN (02:35)
[2019-04-11] MEDS: LORAZEPAM 1 MG TABLET PO PRN (02:35)
--- NOTE | 2019-04-11 02:35 | NUR ---
PATIENT AWAKE, ANXIOUS. GIVEN ATIVAN 1MG PO PRN. SITTER AT BEDSIDE. WILL CONTINUE TO MONITOR AND ASSESS.
[2019-04-11 05:00] VITALS: BP 156/48
--- NOTE | 2019-04-11 05:45 | NUR ---
PATIENT AWAKE. VSS. SITTER AT BEDSIDE. ALL NEEDS ATTENDED.
[2019-04-11 08:54] VITALS: BP 140/57
[2019-04-11] MEDS ORDERED: AMLODIPINE 10 MG TABLET PO SCH (09:00)
[2019-04-11] MEDS ORDERED: ATORVASTATIN 20 MG TABLET PO SCH (09:00)
[2019-04-11] MEDS: HALOPERIDOL LACTATE 10 MG/5 ML ORAL SOLUTION UDC PO SCH (09:22)
[2019-04-11 10:10] LABS: BASOPHILS % (AUTO) 0.5 % (0.0-2.0); EOSINOPHILS # (AUTO) 0.1 K/uL (0.0-0.7); EOSINOPHILS % (AUTO) 0.8 % (0.0-7.0); HEMATOCRIT 34.6 % (31.2-41.9); HEMOGLOBIN 11.5 g/dL (10.9-14.3); LYMPHOCYTES # (AUTO) 1.7 K/uL (20.0-40.0); MEAN CORPUSCULAR HGB CONC 33 g/dL (32.3-35.6); MEAN CORPUSCULAR VOLUME 81.6 fL (75.5-95.3); MONOCYTES # (AUTO) 0.7 K/uL (2.0-10.0); MONOCYTES % (AUTO) 7.4 % (0.0-11.0); NEUTROPHILS # (AUTO) 6.6 K/uL (1.8-8.9); NEUTROPHILS % (AUTO) 72.3 % (38.5-71.5); PLATELET COUNT (AUTO) 229 K/uL (179-408); RED BLOOD CELL COUNT(AUTO) 4.24 MIL/uL (3.63-4.92); WHITE BLOOD COUNT (AUTO) 9.1 K/uL (3.8-11.8)
[2019-04-11] MEDS ORDERED: CLON0.1T14 PO (10:14)
[2019-04-11] MEDS ORDERED: HALO2ORA PO (10:14)
[2019-04-11] MEDS ORDERED: BENZ1TAB7 PO (10:14)
[2019-04-11] MEDS ORDERED: LORA-259 PO (10:14)
[2019-04-11 10:16] LABS: CREATININE 0.6 mg/dL (0.6-1.3); MAGNESIUM 1.7 mg/dL (1.8-2.4); PHOSPHOROUS 3.6 mg/dL (2.5-4.9); POTASSIUM 3.9 mmol/L (3.5-5.1)
--- NOTE | 2019-04-11 10:42 | NUR ---
Full telephone SBAR report received by DONATO Bloom 3rd floor.
--- NOTE | 2019-04-11 10:42 | NUR ---
Patient discharged to [facility] ; DONATO Toure given Report ; patient with stable vital signs ; patient take medications crushed; patient with 1:1 sitter and on a 14 day hold until 04/18/19.
[2019-04-12] MEDS ORDERED: BENZ1TAB7 PO (16:20)
[2019-04-12] MEDS ORDERED: HALO2TAB PO (16:21)
[2019-04-12] MEDS ORDERED: LORA1TAB PO (16:21)
== END 2019-04-11 11:10 | DRG 640 ==
LOC: MEDSURG3 20:33
PROVIDERS: ADMIT Internal Medicine; ATTEND Internal Medicine
DX: E86.0 Dehydration (principal); N17.0 Acute kidney failure with tubular necrosis; G93.41 Metabolic encephalopathy; F03.91 Unspecified dementia, unspecified severity, with behavioral disturbance; N39.0 Urinary tract infection, site not specified; F29 Unspecified psychosis not due to a substance or known physiological condition; I10 Essential (primary) hypertension; B96.20 Unspecified Escherichia coli [E. coli] as the cause of diseases classified elsewhere; E78.5 Hyperlipidemia, unspecified
CPT/HCPCS: 36415; 83735; 84100; 85025; G0378; J0696; J1630; J7030; J7060

== ENCOUNTER 2019-04-11 11:57 | Inpatient (IN) | payer MEDICARE, MEDICAID ==
[~2019-04-11] VITALS: Ht 160 cm; Wt 74.8 kg
--- NOTE | 2019-04-11 10:45 | NUR ---
Pt received from 3rd floor with 1:1 sitter. Full telephone SBAR report received by DONATO Bloom. Pt stable and nad noted upon admission.
[2019-04-11 11:30] VITALS: BP 115/48
[~2019-04-11 11:57] MED LIST changes: +BENZ1TAB7 PO; +CLON0.1T14 PO; +HALO2ORA PO; +LORA-259 PO
[2019-04-11] MEDS ORDERED: BENZTROPINE MESYLATE 1 MG TABLET PO PRN (12:15)
[2019-04-11] MEDS ORDERED: ACETAMINOPHEN 325 MG TABLET PO PRN (12:30)
[2019-04-11] MEDS ORDERED: MAG HYDROX/AL HYDROX/SIMETH 30 ML LIQUID UDC PO PRN (12:30)
[2019-04-11] MEDS ORDERED: MAGNESIUM HYDROXIDE 30 ML LIQUID UDC PO PRN (12:30)
[2019-04-11] MEDS ORDERED: BLOOD SUGAR DIAGNOSTIC 1 EACH STRIP VI ONE (12:30)
[2019-04-11] MEDS: HALOPERIDOL 2 MG TABLET PO SCH ×3 (12:56→20:22)
[2019-04-11] MEDS ORDERED: CLONIDINE HCL 0.1 MG TABLET PO PRN (14:45)
[2019-04-11 15:58] VITALS: BP 159/63
[2019-04-11 19:39] VITALS: BP 106/51
[2019-04-11] MEDS: ZOLPIDEM 5 MG TABLET PO PRN (23:45)
--- NOTE | 2019-04-12 06:21 | NUR ---
GPS: Remain confused and uncooperative with care. compliant with meds. assisted with adl's. slept 8:30 hrs through the night after ambien 5 mg po given. resting in librado chair near nursing station. continue plan of care.
[2019-04-12 07:30] VITALS: BP 177/94
[2019-04-12] MEDS: HALOPERIDOL 2 MG TABLET PO SCH ×4 (08:53→20:01)
[2019-04-12] MEDS: ATORVASTATIN 20 MG TABLET PO SCH (08:53)
[2019-04-12] MEDS: AMLODIPINE 10 MG TABLET PO SCH (08:53)
[2019-04-12 15:51] VITALS: BP 167/78
[2019-04-12] MEDS ORDERED: BENZ1TAB7 PO (16:20)
[2019-04-12] MEDS ORDERED: LORA1TAB PO (16:21)
[2019-04-12] MEDS ORDERED: HALO2TAB PO (16:21)
[2019-04-12 20:50] VITALS: BP 141/58
--- NOTE | 2019-04-12 21:32 | NUR ---
GPS: Pt.refused PNA/Flu vaccine when asked/offered. Unable to provide reason for refusal. Communicated to [facility] nurse.
[2019-04-12] MEDS: ZOLPIDEM 5 MG TABLET PO PRN (22:07)
[2019-04-13] MEDS: LORAZEPAM 0.5 MG TABLET PO PRN ×2 (01:43→07:44)
--- NOTE | 2019-04-13 01:52 | NUR ---
GPS: Awake at this time and attempting to get out of bed. Anxious,restless and confused. Re-directed numerous times but unsuccessful. Ativan 0.5mg given PO. Up on librado-chair in front of nurses station for safety. Quiet environment provided to facilitate sleep.
[2019-04-13 07:30] VITALS: BP 162/75
[2019-04-13] MEDS: AMLODIPINE 10 MG TABLET PO SCH (08:02)
[2019-04-13] MEDS: HALOPERIDOL 2 MG TABLET PO SCH (08:02)
[2019-04-13] MEDS: ATORVASTATIN 20 MG TABLET PO SCH (08:02)
[2019-04-13 15:31] VITALS: BP 162/63
[2019-04-13] MEDS: HALOPERIDOL 5 MG TABLET PO SCH ×2 (16:18→20:02)
[2019-04-13] MEDS ORDERED: HALOPERIDOL 2 MG TABLET PO SCH (17:00)
[2019-04-13 20:00] VITALS: BP 150/59
[2019-04-13] MEDS: ZOLPIDEM 5 MG TABLET PO PRN (22:02)
[2019-04-14 07:24] LABS: CREATININE 0.6 mg/dL (0.6-1.3)
[2019-04-14 07:30] VITALS: BP 169/72
[2019-04-14] MEDS: HALOPERIDOL 5 MG TABLET PO SCH ×3 (08:03→21:44)
[2019-04-14] MEDS: ATORVASTATIN 20 MG TABLET PO SCH (08:03)
[2019-04-14] MEDS: AMLODIPINE 10 MG TABLET PO SCH (08:03)
[2019-04-14 15:16] VITALS: BP 124/50
--- NOTE | 2019-04-14 18:03 | NUR ---
GPS: received patient on librado chair, mumbling , talking to herself , compliant with medication, encourage to take more fluid
[2019-04-14] MEDS: LORAZEPAM 0.5 MG TABLET PO PRN (20:26)
[2019-04-14 20:37] VITALS: BP 152/58
[2019-04-14] MEDS: MIRTAZAPINE 15 MG TABLET PO SCH (21:44)
--- NOTE | 2019-04-14 22:00 | NUR ---
received to care, up in [facility]
--- NOTE | 2019-04-14 22:30 | NUR ---
received to care, up in [facility], restless, difficult to redirect. PRN ativan was given at 2025, which was effective in calming her down. she was compliant with medications and staff direction. as of 2229, she is in bed, asleep. no dsitress noted. will continue to monitor closely.
--- NOTE | 2019-04-15 00:30 | NUR ---
pt climbed out of bed, and tried to get in her neighbors bed. became combative when redirection attempted; assisted to librado chair. currently at nurses station, talking to self. will continue to monitor clsoely.
--- NOTE | 2019-04-15 01:00 | NUR ---
appears to be asleep. no distress noted.
[2019-04-15] MEDS: LORAZEPAM 0.5 MG TABLET PO PRN (03:23)
--- NOTE | 2019-04-15 03:23 | NUR ---
was assisted to bed at around 0200, but she immediately tried to get up, so she was placed back in librado chair for safety. she continued to be agitated, talking to self, difficult to redirect. PRN ativan was given, at this time.
[2019-04-15 07:30] VITALS: BP 117/59
[2019-04-15] MEDS: ATORVASTATIN 20 MG TABLET PO SCH (08:58)
[2019-04-15] MEDS: HALOPERIDOL 5 MG TABLET PO SCH ×2 (08:59→21:03)
[2019-04-15] MEDS: AMLODIPINE 10 MG TABLET PO SCH (08:59)
[2019-04-15 16:02] VITALS: BP 124/90
[2019-04-15] MEDS: HALOPERIDOL 2 MG TABLET PO SCH (16:08)
[2019-04-15] MEDS ORDERED: HALOPERIDOL 5 MG TABLET PO SCH (17:00)
--- NOTE | 2019-04-15 18:34 | NUR ---
GPS received patient AOx1, calm and cooperative, denies SI and HI, no distress noted
--- NOTE | 2019-04-15 20:00 | NUR ---
RECEIVED PATIENT SITTING IN RECLINING CHAIR. PATIENT AO TO SELF ONLY. AFFECT FLAT. PATIENT CAN GET SLIGHTLY ANXIOUS WHEN SPOKEN TO, BUT CALMS DOWN WHEN LEFT ALONE. NO S/SX OF SI/HI. NO SIGNS OF PAIN OR SOB. CONTINUE TO MONITOR.
[2019-04-15 20:22] VITALS: BP 114/40
[2019-04-15] MEDS: MIRTAZAPINE 15 MG TABLET PO SCH (21:03)
--- NOTE | 2019-04-16 06:02 | NUR ---
Patient slept approximately 6.45 hours.
[2019-04-16] MEDS: AMLODIPINE 10 MG TABLET PO SCH (08:25)
[2019-04-16] MEDS: ATORVASTATIN 20 MG TABLET PO SCH (08:25)
[2019-04-16] MEDS: HALOPERIDOL 2 MG TABLET PO SCH ×2 (08:25→17:05)
[2019-04-16 11:02] VITALS: BP 154/58
[2019-04-16 17:05] VITALS: BP 106/43
[2019-04-16 20:43] VITALS: BP 154/63
[2019-04-16] MEDS: HALOPERIDOL 5 MG TABLET PO SCH (21:00)
[2019-04-16] MEDS: MIRTAZAPINE 15 MG TABLET PO SCH (21:00)
--- NOTE | 2019-04-16 22:00 | NUR ---
received to care, up in librado chair, asleep. pt is east to arouse, but goes right back to sleep. all bedtime medications were held. thids blurb writer attempted to give PO fluids, but she was unable to take any due to being too sleepy. currently up in librado chair. no distress noted.
--- NOTE | 2019-04-16 23:20 | NUR ---
assisted to bed. continues to sleep. no distress noted.
--- NOTE | 2019-04-17 06:58 | NUR ---
slept well last night. continues to sleep. no distress noted.
[2019-04-17 08:06] VITALS: BP 119/74
[2019-04-17] MEDS: HALOPERIDOL 2 MG TABLET PO SCH (08:41)
[2019-04-17] MEDS: ATORVASTATIN 20 MG TABLET PO SCH (08:41)
[2019-04-17] MEDS: AMLODIPINE 10 MG TABLET PO SCH (08:46)
[2019-04-17 09:00] VITALS: BP 119/74
--- NOTE | 2019-04-17 09:26 | NUR ---
Discharge Note Patient will be discharged today to [facility] [[address] [place] [address]; ].Please arrange ambulance for this patient at 1:00pm. Spoke to Ananya, Supervisor Housecleaner who stated facility is ready to accept patient today. Spoke with patients probate conservator Loretta Diehl [ ] who is agreeable with discharge plan. Spoke with patients sister April [[phone]] who is also aware and agreeable with discharge plan. Patient is alert and oriented x1-2. Patient will follow up with Dr. Dudley (Laborer Demolition) and Dr. Chavira (Psychiatrist). Patient was provided with outpatient mental health resources to [facility] and the National Suicide Prevention Lifeline .
[2019-04-17] MEDS: LORAZEPAM 0.5 MG TABLET PO PRN (14:42)
--- NOTE | 2019-04-17 14:52 | NUR ---
Gps/High School Foreign Language Teacher- Called [facility], report was given to DONATO Read . All belongings was given back to patient. No distress.No pain noted.
--- NOTE | 2019-04-17 14:56 | NUR ---
Gps/Personal Finance Instructor- Ambulance in to pick up worker patient, all belongings given back. Patient in no sign of any distress.
== END 2019-04-17 15:15 | DRG 885 ==
LOC: GPS 11:57
PROVIDERS: ADMIT Psychiatry & Neurology Psychiatry; ATTEND Internal Medicine
DX: F29 Unspecified psychosis not due to a substance or known physiological condition (principal); N17.0 Acute kidney failure with tubular necrosis; G93.41 Metabolic encephalopathy; F03.91 Unspecified dementia, unspecified severity, with behavioral disturbance; R62.7 Adult failure to thrive; E78.5 Hyperlipidemia, unspecified; Z79.899 Other long term (current) drug therapy; I10 Essential (primary) hypertension; Z87.440 Personal history of urinary (tract) infections
CPT/HCPCS: 36415